=== PATIENT | male | born 1970 | race Caucasian/White ===

== ENCOUNTER → 2024-05-10 13:04 | Outpatient (REF) | payer BC, SELFPAY ==
[2024-05-10 13:40] VITALS: BP 141/92; BP_SYST 86
== END ==
LOC: RADI 13:04
PROVIDERS: ATTENDING PHYSICIAN Internal Medicine Endocrinology, Diabetes & Metabolism; FAMILY PHYSICIAN Family Medicine
DX: E04.1 Nontoxic single thyroid nodule (principal)
CPT/HCPCS: 88173; 10005

== ENCOUNTER 2025-05-17 00:01 | Emergency (ER) | payer BC, SELFPAY ==
[2025-05-17 00:04] VITALS: BP 128/78
[2025-05-17 00:26] VITALS: BP 155/87
[2025-05-17 00:28] VITALS: BMI 36.1
[2025-05-17 01:00] VITALS: BP 150/77
[2025-05-17 01:18] LABS: Hematocrit 45.3 % (39.0-52.0); Hemoglobin 16.0 g/dL (13.0-18.0); Mean Corp Hgb Conc. 35.3 g/dL (33.0-37.0); Mean Corpuscular Volume 85.0 fL (80.0-94.0); Nucleated Red Blood Cells % 0 % (-); Platelet Count 204 10^3/uL (130-400); Red Cell Dist. Width 12.7 % (11.5-14.5)
[2025-05-17] MEDS: ADACEL 0.5 ML IM (01:26)
[2025-05-17 01:35] LABS: ALT (SGPT) 22 U/L (0-50); AST (SGOT) 18 U/L (17-59); Albumin 4.1 g/dl (3.5-5.0); Alkaline Phosphatase 60 U/L (38-126); Blood Urea Nitrogen 17 mg/dl (9-20); Calcium 9.4 mg/dl (8.4-10.2); Carbon Dioxide 27 mmol/L (22-30); Chloride 105 mmol/L (98-107); Estimated Creatinine Clearance > 125 ml/min; Glucose 287 mg/dl (70-99); Potassium 4.5 mmol/L (3.5-5.1); Sodium 138 mmol/L (135-145); Total Protein 6.2 g/dl (6.3-8.2); eGFR > 60.00
--- NOTE | 2025-05-17 01:55 | ED.GENMED ---
History of Present Illness
General
Chief Complaint: Skin Problem
Source: patient
Exam Limitations: none
Time Seen by Provider: 05/17/25 00:50
Nursing documentation reviewed up to this point in time: agreed with
History of Present Illness
History of Present Illness:
The patient is a 54-year-old male with history of cng-eqtyhso-ggbsmifca diabetes who presents with swelling and warmth in the left lower leg following trauma. The patient reports that a piece of steel fell on his leg approximately a week ago (last
Wednesday). He was wearing jeans, which were not penetrated by the steel, and it seemed to have only caused a bruise and a minor cut/abrasion on the skin. The patient initially visited the emergency room on Wednesday night but left due to a long wait. He
followed up with urgent care on Wednesday, where he was started on doxycycline. He has been taking the antibiotic for about 48 hours now. The patient reports no fever, but notes that his ankle has been slightly swollen, especially after walking a lot
today due to work activities. The site is described as having a scab and mild redness, which his , a nurse, documented with pictures. The patient feels the antibiotic might be working as the redness has not worsened, although the area still
feels slightly warm.
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 Regarding his diabetes, he recently had a hemoglobin A1C of 10.1 (1 week ago) and is on Mounjaro for diabetes management as well as Jardiance,
glipizide, Janumet. He has follow-up with his physician scheduled June.
Unsure as to his last Tdap believes this was greater than 10 years ago.
Past History
Past History
ED Past Medical History: NIDDM and Other (Obesity)
ED Past Surgical History: Orthopedic (Foot) and Other (Hernia repair)
Social History
Tobacco: Non-smoker
Alcohol: Occasional
Drug: None
Personal:
Living: with family
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
Family History
Family History: Other (Noncontributory)
Phy Exam
Physical Exam
Physical Exam:
GENERAL: 54-year-old gentleman appears his stated age, bright and alert, pleasant, appears in no acute distress. Afebrile.
EYE: anicteric
NECK: Supple, nontender, no meningismus, no significant adenopathy.
ENT: oral mucosa is moist. No rhinorrhea.
CARDIAC: Regular rate and rhythm. no murmur.
LUNGS: Clear breath sounds bilaterally, no acute respiratory distress, no wheezes/rales/rhonchi
ABDOMEN: Rotund, soft, nondistended, without focal tenderness
NEUROLOGICAL: Alert and oriented x3, no focal neuro deficits. Gait is steady.
SKIN: Warm and dry, normal color. Left anterior lower leg has 2 subacute abrasions the superior of which is 3 cm x 3 cm and just distal to this 2 cm x 2 centimeters. There is a focal surrounding area of ecchymosis and focal area of erythema that
measures approximately 11 cm x 10 cm. Mild local tenderness to palpation is mild palpable heat.. No peripheral edema. Peripheral pulses are full and equal. There is no lymphangitis
MUSCULOSKELETAL: No C/C/E. peripheral pulses are full and equal b/l.
PSYCH: Normal and appropriate interaction.
Course
Orders/Labs/Results
Orders:
Orders
05/17/25 01:06
Complete Blood Count/With Diff Urgent
Lactic Acid Urgent
05/17/25 01:07
Comprehensive Metabolic Panel Urgent
05/17/25 01:14
Tetanus/Diphth/Acelpertussis [Adacel] 0.5 ml IM .ONCE ONE
Tibia/Fibula, Left 2 View [CR Leg Tibia/fibula Left 2 Vw] Urgent
Comment:
Reason For Exam: injury 1 wk ago-ant lower leg pain/redness
05/17/25 02:00
Vancomycin [Vancocin] 2,000 mg 0.9% Sodium Chloride 500 ml [Nss] 500 ml IV NOW
Abnormal Lab Results
05/17/25 05/17/25
01:06 01:07
MPV 11.1 H fL
(7.4-10.4)
Absolute Monos (auto) 1.0 H 10^3/uL
(0.1-0.6)
Monocytes % 11.0 H %
(1.7-9.3)
Glucose 287 H mg/dl
(70-99)
Total Protein 6.2 L g/dl
(6.3-8.2)
05/17/25 01:06
05/17/25 01:07
Vital Signs
Initial and Last Documented VS:
Initial Vital Signs
Temp Pulse Resp BP Pulse Ox
98.5 F 85 16 128/78 99
05/17/25 00:04 05/17/25 00:04 05/17/25 00:04 05/17/25 00:04 05/17/25 00:04
Last Documented Vital Signs
Temp Pulse Resp BP Pulse Ox
98.5 F 74 18 133/84 99
05/17/25 00:04 05/17/25 02:18 05/17/25 02:18 05/17/25 02:16 05/17/25 02:18
MDM/Problems Addressed
Differential Diagnosis Includes:
The Differential Diagnosis includes, in no particular order and is not limited to:
1. Cellulitis
2. Contusion
3. Deep vein thrombosis
4. Hematoma
5. Abscess
6. Osteomyelitis
7. Ligament sprain
8. Compartment syndrome
9. Inflammatory arthritis
10. Tendinitis
MDM/Problems Addressed:
Left lower extremity injury with focal erythema/cellulitis.
History of diabetes, somewhat poorly controlled with recent hemoglobin A1c elevated at 10.1. Certainly puts him at risk for infection.
Will check labs including lactic acid, blood cultures and will check x-ray of the left lower extremity.
Will update Tdap.
Will plan for an IV dose of vancomycin.
Chronic conditions affecting care: DM
*Radiology
Radiology exam reviewed: preliminary read by ED provider (Tib-fib x-ray shows no evidence of fracture. There are 3 rounded soft tissue calcifications medial aspect of the mid to lower leg that are not associated with superficial abrasions anterior
aspect of the lower leg.)
*Pulse Oximetry
SaO2: 94
Oxygen Mode of Delivery: Room air
Patient hypoxic: no
*Critical Care Note
Total Time (30-74mins, 75-104mins- exclusive of procedures): Not Applicable
Update Note
Update Note:
Labs are reassuring. Normal white blood cell count. Normal lactic acid.
Random glucose elevated at 287 but otherwise chemistries within normal limits. No acidosis.
Will plan for an IV dose of vancomycin and discharge to home with recommendations to continue doxycycline twice daily for total 10 days. Continue mupirocin cream to wounds twice daily.
Tylenol versus ibuprofen as needed for discomfort.
Elevate leg when sitting.
Prompt follow-up with PCP for recheck.
Return precautions discussed.
ED Attending Note
-
Portions of this chart may have been created with voice recognition software.� Occasional wrong word or��sound alike� substitutions may have occurred due to the inherent limitations of voice recognition software.
Discharge Plan
Departure
Patient Disposition: Home (Routine Discharge)
Date of Disposition: 05/17/25
Time of Disposition: 03:21
Patient with high blood pressure during this ER visit?: No
Condition: Good
Discharge Problem:
Abrasion of left lower leg with infection, NIDDM with hypeglycemia
Instructions: Cellulitis (Skin Infection), Adult (DC)
Prescriptions:
No Action
Janumet 1 EACH tablet
1 tab PO DAILY
glipizide 10 MG tablet
10 mg PO DAILY
Jardiance 25 MG tablet
25 mg PO DAILY
Mounjaro 2.5 mg/0.5 mL Pen Injector
0.5 mg SC QWEEK
Rx Instructions:
for 4 weeks
Referrals:
Ada Johnson DO [Family Provider, Family Practice] - Call in 1-3 days for appt
Activity Restrictions/Additional Instructions:
Continue doxycycline twice daily until finished.
Continue mupirocin ointment to leg wounds once or twice daily.
Elevate leg when sitting.
Follow-up with your primary care physician at the end of this week or early next week for recheck.
If you develop a fever or if redness and pain appear to be worsening, spreading, prompt return to the ER for further evaluation.
Interventions
Interventions:
*Risk Screen - Suicide Last Done: 05/17/25 00:04
*General Assessment Last Done: 05/17/25 00:04
*Neglect/Abuse Screening Last Done: 05/17/25 00:04
*ED- Fall Risk Assessment Last Done: 05/17/25 00:29
*ED COVID-19 Vaccine History Last Done: 05/17/25 00:29
ED-Skin Assessment Last Done: 05/17/25 00:38
Discharge Date and Time
Print Language: CITIZEN [place]
[2025-05-17 02:16] VITALS: BP 133/84
[2025-05-17] MEDS: VANCOCIN 540 MG IV (02:25)
== END 2025-05-17 04:55 | disposition home or self-care (01) ==
LOC: EMR 00:01
PROVIDERS: EMERGENCY PHYSICIAN Emergency Medicine; FAMILY PHYSICIAN Family Medicine
DX: S80.812A Abrasion, left lower leg, initial encounter (principal); L08.9 Local infection of the skin and subcutaneous tissue, unspecified; E11.65 Type 2 diabetes mellitus with hyperglycemia; E66.9 Obesity, unspecified; Z68.36 Body mass index [BMI] 36.0-36.9, adult; Z23 Encounter for immunization; Z79.85 Long-term (current) use of injectable non-insulin antidiabetic drugs; Z79.84 Long term (current) use of oral hypoglycemic drugs; W20.8XXA Other cause of strike by thrown, projected or falling object, initial encounter; Y99.0 Civilian activity done for income or pay
CPT/HCPCS: 99284; 96365; 96366; 90471; 73590; 80053; 83605; 85025; 90715

== ENCOUNTER → 2025-07-11 13:08 | Outpatient (REF) | payer BC, SELFPAY ==
[2025-07-11 14:00] VITALS: BP 130/79; BP_SYST 72
== END ==
LOC: RADI 13:08
PROVIDERS: ATTENDING PHYSICIAN Nurse Practitioner Family; FAMILY PHYSICIAN Family Medicine
DX: E04.2 Nontoxic multinodular goiter (principal)
CPT/HCPCS: 10005; 10006; 88173